=== PATIENT | female | born 1980 | race African-American/Black ===

== ENCOUNTER 2021-04-26 11:39 | Emergency (ER) | payer BC ==
[2021-04-26] MEDS ORDERED: Ibuprofen 200 MG TAB ONE (13:04)
[2021-04-26] MEDS ORDERED: Acetaminophen 500 MG TAB ONE (13:04)
[2021-04-27 01:09] LABS: SARS-CoV-2 PCR by NAA Not Detected (NotDetected)
== END 2021-04-26 14:10 | disposition home or self-care (01) ==
LOC: CSHERS 11:39
DX: J06.9 Acute upper respiratory infection, unspecified (principal); M19.90 Unspecified osteoarthritis, unspecified site; F17.210 Nicotine dependence, cigarettes, uncomplicated; Z20.822 Contact with and (suspected) exposure to COVID-19; Z79.899 Other long term (current) drug therapy
CPT/HCPCS: 71045; 87804; U0003; U0005